=== PATIENT | female | born 1990 | race Two or more races ===

== ENCOUNTER 2025-05-02 08:35 | Inpatient (IN) | payer OTHER ==
[~2025-05-02] VITALS: Ht 157.5 cm; Wt 132.4 kg
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
[2025-05-02 10:04] LABS: Hematocrit 40.3 % (36.0-46.0); Hemoglobin 13.8 g/dL (12.2-16.2); Mean Corpuscular Hemoglobin 29.0 pg (28.0-32.0); Mean Corpuscular Volume 84.8 fL (80.0-100.0); Nucleated Red Blood Cells % 0.1 %
[2025-05-02 10:10] LABS: Anion Gap 8 (5-15); Carbon Dioxide 24 mmol/L (20-31); Chloride 106 mmol/L (98-107); Sodium 138 mmol/L (136-145)
--- NOTE | 2025-05-02 10:10 | DVH ---
Left lower extremity venous duplex Clinical History: LEFT LOWER LEG REDNESS, SWELLING AND PAIN Comparison: None Technique: Duplex Doppler evaluation of the deep venous system of the left lower extremity from the common femor al vein to the popliteal vein including color Doppler and spectral/pulsed waveform analysis was perfo rmed. Findings: The common femoral vein demonstrates appropriate compressibility and waveform variability. There is compressibility/patency of the great saphenous vein at the proximal thigh. The femoral vein demonstrates appropriate compressibility and waveform variability. The deep femoral vein demonstrates appropriate compressibility and waveform variability. The popliteal vein demonstrates appropriate compressibility and waveform variability. There is normal compressibility at the tibioperoneal trunk. Possible small popliteal fossa cyst or small volume joint fluid measures 1.7 cm. Impression: No left femoropopliteal venous thrombosis.
[2025-05-02 10:11] LABS: Calcium 9.3 mg/dL (8.7-10.4)
[2025-05-02 10:16] LABS: BUN/Creatinine Ratio 9.0 (10.0-20.0); Glucose 106 mg/dL (74-106)
[2025-05-02 10:17] LABS: Blood Urea Nitrogen 7 mg/dL (9-23); Potassium 3.4 mmol/L (3.5-5.1)
[2025-05-02] MEDS ORDERED: CLINDAMYCIN 900MG IV 50 ML IV ONE (10:45)
[2025-05-02 11:09] LABS: Urine Protein, UAD TRACE (Negative)
[2025-05-02] MEDS: cefTRIAXone 1GM/50ML D5W 50 ML IV ONE (14:39)
[2025-05-02] MEDS: KETOROLAC TROMETH 30 MG/ML 1ML VIAL IV ONE (14:39)
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
[2025-05-02] MEDS ORDERED: ONDANSETRON HCL 4 MG/2 ML VIAL IV PRN (19:00)
[2025-05-02] MEDS ORDERED: HYDROcodone-ACET 5/325MG TAB PO PRN (19:00)
[2025-05-02] MEDS ORDERED: DOCUSATE SOD 100 MG CAP PO PRN (19:00)
[2025-05-02] MEDS: SODIUM CHLOR 0.9% PF (SALINE LOCK) 10ML VIAL/SYR IV SCH (22:04)
[2025-05-03] MEDS: DOXYCYCLINE 100MG/100ML 100 ML IV SCH (00:34)
[2025-05-03 01:00] VITALS: BP 117/72; PULSE 72; RESP 19; TEMP 98.7; O2SAT 97
[2025-05-03 01:36] VITALS: BP 117/72; PULSE 72; RESP 19; TEMP 98.7; O2SAT 97
[2025-05-03] MEDS: ACETAMINOPHEN 325 MG TAB PO PRN (04:28)
[2025-05-03 05:00] VITALS: BP 119/62; PULSE 83; RESP 20; TEMP 97.9; O2SAT 95
[2025-05-03 07:51] LABS: Hematocrit 36.8 % (36.0-46.0); Hemoglobin 12.4 g/dL (12.2-16.2); Mean Corpuscular Hemoglobin 28.8 pg (28.0-32.0); Mean Corpuscular Volume 85.2 fL (80.0-100.0); Nucleated Red Blood Cells % 0.0 %
[2025-05-03 07:57] LABS: Albumin 4.2 g/dL (3.2-4.8); Alkaline Phosphatase 68 U/L (46-116); Anion Gap 12 (5-15); BUN/Creatinine Ratio 11.0 (10.0-20.0); Blood Urea Nitrogen 9 mg/dL (9-23); Calcium 9.1 mg/dL (8.7-10.4); Carbon Dioxide 22 mmol/L (20-31); Chloride 107 mmol/L (98-107); Glucose 85 mg/dL (74-106); Potassium 3.6 mmol/L (3.5-5.1); Sodium 141 mmol/L (136-145); Total Protein 6.7 g/dL (5.7-8.2)
[2025-05-03 08:18] LABS: Alanine Aminotransferase 43 U/L (7-40); Bilirubin, Total 0.3 mg/dL (0.2-1.0)
[2025-05-03] MEDS: cefTRIAXone 1GM/50ML D5W 50 ML IV SCH (10:40)
[2025-05-03] MEDS: ENOXAPARIN SOD 40 MG/0.4 ML SYRINGE SC SCH (10:40)
[2025-05-03] MEDS: HYDROmorphone HCL 2 MG/ML VL/or syr IV PRN (14:55)
[2025-05-03] MEDS ORDERED: KETOROLAC TROMETH 30 MG/ML 1ML VIAL IV PRN (15:00)
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
[2025-05-03 22:25] VITALS: BP 131/87; PULSE 84; RESP 38; TEMP 98.3; O2SAT 97
[2025-05-04] VITALS (7 sets, daily range): BP systolic 116–129; BP diastolic 71–79; PULSE 70–82; RESP 16–18; TEMP 97.6–98.2; O2SAT 96–98
[2025-05-04 07:32] LABS: Hematocrit 35.9 % (36.0-46.0); Hemoglobin 12.2 g/dL (12.2-16.2); Mean Corpuscular Hemoglobin 28.6 pg (28.0-32.0); Mean Corpuscular Volume 84.1 fL (80.0-100.0); Nucleated Red Blood Cells % 0.1 %
[2025-05-04 07:43] LABS: Alanine Aminotransferase 34 U/L (7-40); Alkaline Phosphatase 61 U/L (46-116); Anion Gap 7 (5-15); BUN/Creatinine Ratio 12.2 (10.0-20.0); Bilirubin, Total 0.5 mg/dL (0.2-1.0); Blood Urea Nitrogen 9 mg/dL (9-23); Calcium 8.9 mg/dL (8.7-10.4); Carbon Dioxide 26 mmol/L (20-31); Chloride 107 mmol/L (98-107); Glucose 101 mg/dL (74-106); Potassium 3.9 mmol/L (3.5-5.1); Sodium 140 mmol/L (136-145); Total Protein 6.3 g/dL (5.7-8.2)
[2025-05-04 07:52] LABS: Albumin 4.1 g/dL (3.2-4.8)
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
[2025-05-04] MEDS: IBUPROFEN 800 MG TAB PO PRN (14:12)
[2025-05-05] VITALS (7 sets, daily range): BP systolic 95–129; BP diastolic 50–95; PULSE 64–83; RESP 16–20; TEMP 97.6–98; O2SAT 97–99
[2025-05-05 07:52] LABS: Hematocrit 35.7 % (36.0-46.0); Hemoglobin 12.4 g/dL (12.2-16.2); Mean Corpuscular Hemoglobin 29.2 pg (28.0-32.0); Mean Corpuscular Volume 84.2 fL (80.0-100.0); Nucleated Red Blood Cells % 0.0 %
[2025-05-05 07:56] LABS: Alanine Aminotransferase 32 U/L (7-40); Albumin 4.0 g/dL (3.2-4.8); Alkaline Phosphatase 63 U/L (46-116); Anion Gap 7 (5-15); BUN/Creatinine Ratio 13.5 (10.0-20.0); Blood Urea Nitrogen 10 mg/dL (9-23); Calcium 8.9 mg/dL (8.7-10.4); Carbon Dioxide 26 mmol/L (20-31); Chloride 106 mmol/L (98-107); Glucose 95 mg/dL (74-106); Potassium 4.1 mmol/L (3.5-5.1); Sodium 139 mmol/L (136-145); Total Protein 6.3 g/dL (5.7-8.2)
[2025-05-05 07:57] LABS: Bilirubin, Total 0.4 mg/dL (0.2-1.0)
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
[2025-05-05] MEDS ORDERED: LEVO500T91 PO (16:47)
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
[2025-05-05] MEDS: levoFLOXacin 250 MG TAB PO ONE (17:04)
== END 2025-05-05 20:10 | disposition home or self-care (01) | DRG 603 ==
LOC: ER 08:35 → OVERFLOW 18:50 → WEST WING 05-03 22:00
PROVIDERS: ADMIT Hospitalist; ATTEND Hospitalist
DX: L03.116 Cellulitis of left lower limb (principal); Z68.43 Body mass index [BMI] 50.0-59.9, adult; N39.0 Urinary tract infection, site not specified; L60.0 Ingrowing nail; E66.01 Morbid (severe) obesity due to excess calories; Z88.0 Allergy status to penicillin; Z88.1 Allergy status to other antibiotic agents; Z89.422 Acquired absence of other left toe(s); Z82.61 Family history of arthritis; Z88.6 Allergy status to analgesic agent
CPT/HCPCS: 36415; 80048; 80053; 81001; 81025; 83605; 85025; 86141; 87040; 87086; 93971; 96365; 96375; G0378; J1885; J1956